=== PATIENT | male | born 1975 | race Caucasian/White ===

== ENCOUNTER 2021-05-07 22:36 | Emergency (ER) | payer MEDICAID ==
[~2021-05-07] VITALS: Ht 167.6 cm; Wt 84.0 kg
[2021-05-07] MEDS ORDERED: KETOROLAC 60MG/2ML VIAL IM ONE (23:45)
[2021-05-08 00:21] LABS: BASOPHILS % 0.7 % (0.0-2.0); EOSINOPHILS % 2.6 % (0.0-5.0); HEMATOCRIT. 48.3 % (42.0-52.0); HEMOGLOBIN. 16.9 g/dL (14.0-18.0); LYMPHOCYTES % 19.7 % (20.0-50.0); MEAN CORPUSCULAR HEMOGLOBIN 32.4 pg (28.0-32.0); MEAN CORPUSCULAR VOLUME 92.4 fL (80.0-94.0); MEAN PLATELET VOLUME 7.4 fl (7.4-10.4); MONOCYTES % 5.7 % (2.0-8.0); NEUTROPHILS % 71.3 % (40.0-76.0); PLATELET 228 x1000/uL (130-400); RED BLOOD CELL COUNT 5.23 mill/uL (4.7-6.1); RED CELL DISTRIBUTION WIDTH 12.6 % (11.6-14.6)
[2021-05-08 00:23] LABS: CHLORIDE 104 mEq/L (98-107)
[2021-05-08 00:28] LABS: C REACTIVE PROTEIN QUANT 2.4 mg/L (0.0-3.0)
[2021-05-08] MEDS ORDERED: P20 MT (03:35)
[2021-05-08] MEDS ORDERED: FAMO10TA41 MT (03:35)
[2021-05-08] MEDS ORDERED: IBUP-2029 MT (03:35)
[2021-05-08] MEDS ORDERED: PREDNISONE 20MG TABLET PO ONE (03:45)
[2021-05-08 03:59] VITALS: BP 118/70
== END 2021-05-08 04:09 | disposition home or self-care (01) ==
LOC: ER 23:55
DX: R51.9 Headache, unspecified (principal)
CPT/HCPCS: 36415; 70450; 80048; 85025; 85651; 86140; 96372; 99284; J7512

== ENCOUNTER 2024-05-20 23:30 | Emergency (ER) | payer MEDICAID ==
[~2024-05-20] VITALS: Ht 167.6 cm; Wt 88.0 kg
[~2024-05-20 23:30] MED LIST: FAMO10TA41 MT; IBUP-2029 MT; P20 MT; PRED10TA MT
[2024-05-20 23:45] VITALS: O2SAT 100
[2024-05-20 23:50] VITALS: BP 144/91; PULSE 72; RESP 20; O2SAT 100
[2024-05-21] MEDS ORDERED: DIPHENHYDRAMINE 50MG CAPSULE PO ONE (00:15)
[2024-05-21 00:35] VITALS: TEMP 98.8
[2024-05-21] MEDS: METOCLOPRAMIDE HCL 10MG TABLET PO ONE (00:35)
[2024-05-21] MEDS: ACETAMINOPHEN 325MG TABLET PO ONE (00:35)
[2024-05-21] MEDS: DIPHENHYDRAMINE 25MG CAPSULE PO NR (00:35)
[2024-05-21] MEDS ORDERED: NAPR-1129 MT (01:54)
== END 2024-05-21 02:15 | disposition home or self-care (01) ==
LOC: ER 23:30
DX: R51.9 Headache, unspecified (principal); Z79.899 Other long term (current) drug therapy
CPT/HCPCS: 99284; 70450; Q0163; J8597